=== PATIENT | male | born 1975 | race Caucasian/White ===

== ENCOUNTER 2019-01-09 10:05 | Observation (INO) ==
[2019-01-09] MEDS ORDERED: 0.9 % Sodium Chloride 1,000 ML IVC ONE (10:17)
--- NOTE | 2019-01-09 10:45 | Emergency Department Note ---
Disposition Clinical Impression: Atrial fibrillation with rapid ventricular response Disposition: Admitted As Inpatient Condition: Fair Time of Disposition: 12:36 General Adult HPI - General Stated complaint: A-Fib,light headed,weakness Time Seen by Provider: 01/09/19 10:13 Source: patient, family Limitations: no limitations Nursing Notes Reviewed: Yes Vital Signs Reviewed: Yes - History of Present Illness HPI Narrative: 43-year-old male with a past medical history of hypertension and reflux and several episodes of atrial fibrillation that were chemically and electrically converted presents with the chief complaint of palpitations. He states he woke up at 1 AM with palpitations, they have not changed since then, there worsened with standing and walking, he has associated shortness of breath and lightheadedness when standing and walking. He denies any chest pain, diaphoresis, nausea, vomiting. He does not drink or smoke or use drugs, family history significant for mother with atrial fibrillation. His previous episodes of atrial fibrillation were associated with gastrointestinal illnesses and were successfully converted without outpatient therapy required, he has never been anticoagulated. This episode of atrial fibrillation was not associated with any illness. He has had cardiovascular assessment in follow-up in the remote past but not recently. Pain Scale: 0 - Related Data Home Medications Medication Instructions Recorded Confirmed Esomeprazole Magnesium [Nexium 20 mg PO DAILY PRN 03/19/18 03/19/18 24Hr] Previous Rx's Medication Instructions Recorded Promethazine/Dextromethorphan 5 ml PO Q6HR PRN #120 ml 10/08/18 [Promethazine-Dm Syrup] cephALEXin [Keflex] 500 mg PO QID #40 capsule 10/08/18 methylPREDNISolone [Medrol] 4 mg PO TAPER #21 tablet 10/08/18 Allergies Allergy/AdvReac Type Severity Reaction Status Date / Time codeine AdvReac Vomiting Verified 01/09/19 10:10 All systems ED: reviewed and negative except as stated. Review of Systems: As Per HPI Past Medical History - Past Medical History Medical history: Reports: atrial fibrillation, GERD, hypertension Psychiatric history: Reports: no psych history - Social History Smoking Status: Never smoker Smokeless Tobacco Status: No Alcohol use: Reports: none Drug use: Reports: none Physical Exam - General Limitations: no limitations General appearance: alert, in no apparent distress, other (Male appearing stated age, lying comfortably in bed, conversing pleasantly) - Eye Eye exam: Present: normal appearance, PERRL - Chest Chest inspection: Present: symmetric chest wall rise - Respiratory Respiratory exam: Present: normal lung sounds bilaterally - Cardiovascular Cardiovascular exam: Present: tachycardia, irregular rhythm (Irregularly irregular rhythm), normal heart sounds - Abdominal Exam Abdominal exam: Present: soft, Non-Tender - Extremities Exam Extremities exam: Present: normal inspection, other (Mild 1+ pitting edema bilateral lower extremities) - Neurological Exam Neurological exam: Present: alert, oriented X3 - Skin Skin exam: Present: warm, dry Course Course Narrative: Patient presented in atrial fibrillation. He is otherwise hemodynamically stable and asymptomatic besides mild palpitations. We will evaluate with coagulation studies, troponin, BMP, TSH, EKG. We will initiate treatment with Cardizem bolus and Cardizem drip, normal saline bolus. - Reevaluation(s) Reevaluation #1: Cardizem bolus administered, Cardizem drip now started. Rate down from presentation, currently tachycardic in the 120s. Patient is still comfortable without chest pain or shortness of breath. Time: 11:28 Vital Signs Temperature 97.8 F 01/09/19 10:10 Pulse Rate 103 01/09/19 10:10 Respiratory Rate 15 01/09/19 10:10 Blood Pressure 145/84 01/09/19 10:10 O2 Sat by Pulse Oximetry 97 01/09/19 10:10 Temperature 97.8 F 01/09/19 10:10 Pulse Rate 95 01/09/19 11:18 Respiratory Rate 16 01/09/19 11:18 Blood Pressure 123/79 01/09/19 11:18 O2 Sat by Pulse Oximetry 100 01/09/19 11:18 Oxygen Delivery Oxygen Delivery Room Air Medical Decision Making - MDM Narrative Medical decision making narrative: CBC, BMP, coagulation studies negative for acute abnormality. Patient continues to remain in atrial fibrillation with rapid ventricular rate despite Cardizem drip. We will initiate heparin drip, spoke with admitting hospitalist Dr. Goodman who will accept the patient for admission to medicine service for atrial fibrillation with rapid ventricular rate for cardiac workup. He will be transferred to care medicine team in stable condition. - Lab Data Lab results reviewed: Yes I reviewed the patient's lab results. Result diagrams: 01/09/19 10:30 01/09/19 10:30 Lab Results 05/01/09/19 01/09/19 Range/Units 10:30 10:30 10:30 WBC 13.7 H (4.3-11.1) K/mcL RBC 5.30 (4.19-5.50) M/mcL Hgb 16.0 (12.9-16.9) g/dL Hct 45.9 (37.5-50.1) % MCV 86.6 (83.0-100.0) fL MCH 30.2 (28.0-33.3) pg MCHC 34.9 (31.6-35.5) g/dL RDW 13.0 (11.5-14.5) % Plt Count 321 (140-400) K/mcL MPV 10.3 (9.4-12.4) fL Immature Gran % 0.6 (0-4) % Seg Neutrophils % 59.6 % Lymphocytes % 24.1 % Monocytes % 10.2 % Eosinophils % 4.6 % Basophils % 0.9 % Neutrophils # 8.2 (1.6-8.9) K/mcL Lymphocytes # 3.3 (0.6-4.6) K/mcL Monocytes # 1.4 H (0.0-1.3) K/mcL Eosinophils # 0.6 (0.0-0.6) K/mcL Basophils # 0.1 (0.0-0.2) K/mcL PT 11.1 (9.4-12.1) Seconds INR 1.0 APTT 31.5 (26.0-36.0) Seconds Sodium 137 (136-145) mEq/L Potassium 3.8 (3.5-5.1) mEq/L Chloride 105 (98-107) mEq/L Carbon Dioxide 24 (23-29) mEq/L BUN 13 (6-20) mg/dL Creatinine 0.75 (0.70-1.30) mg/dL Est GFR ( Amer) > 60 (> 60) Est GFR (Non-Af Amer) > 60 (> 60) BUN/Creatinine Ratio 17 (6-26) Glucose 118 H (70-105) mg/dL Calculated Osmolality 285 (280-300) Calcium 8.8 (8.6-10.3) mg/dL Troponin I < 0.03 (< 0.04) ng/mL TSH 1.935 (0.340-5.600) mcIU/mL - EKG Data EKG #1 EKG attestation: Yes I reviewed and interpreted this EKG. EKG results narrative: EKG performed 01/09/19 for palpitations. Reviewed myself and the attending. Atrial fibrillation, rate 162, QTC 468. No ST elevations or depressions, T-wave inversions changes, no signs of acute ischemia. No delta waves noted. No comparison available. Attestation Statement - Attestation Attestation: I, Haroon Huber, examined this patient and my medical decision-making was reviewed with the [employer] MACHINE REPAIRER/PA/Advanced Practice Nurse/Resident Physician. I agree with the documented findings, disposition and treatment plan as described except to the extent set forth below. 43-year-old male presents emergency Department with concerns of acute onset palpitations. Patient states symptoms started acutely at 1 AM and woke him from sleep. Patient has a history of atrial fibrillation with RVR which generally occurred with viral disease or nausea, vomiting, diarrhea. Patient denied recent fevers, nausea, vomiting, diarrhea or other associated symptoms. He denies illicit drug use or large amounts caffeine or other substance abuse. Patient does not take anticoagulation at this time. Rhythm during my initial evaluation is regularly irregular and tachycardic. EKG confirmed atrial fibrillation with rapid ventricular rate. Patient started on Cardizem and admitted to the hospitalist for further care and evaluation.
[2019-01-09 10:50] LABS: Basophils # 0.1 K/mcL (0.0-0.2); Basophils % 0.9 %; Eosinophils # 0.6 K/mcL (0.0-0.6); Eosinophils % 4.6 %; Hematocrit 45.9 % (37.5-50.1); Immature Granulocytes % 0.6 % (0-4); Lymphocytes # 3.3 K/mcL (0.6-4.6); Lymphocytes % 24.1 %; Mean Corpuscular HGB Conc 34.9 g/dL (31.6-35.5); Mean Corpuscular Hemoglobin 30.2 pg (28.0-33.3); Mean Corpuscular Volume 86.6 fL (83.0-100.0); Mean Platelet Volume 10.3 fL (9.4-12.4); Monocytes # 1.4 K/mcL (0.0-1.3); Monocytes % 10.2 %; Neutrophils # 8.2 K/mcL (1.6-8.9); Platelet Count 321 K/mcL (140-400); Segmented Neutrophils % 59.6 %
[2019-01-09 10:57] LABS: Prothrombin Time 11.1 Seconds (9.4-12.1)
[2019-01-09 11:00] LABS: Activated Partial Thrombo Time 31.5 Seconds (26.0-36.0)
[2019-01-09 11:06] LABS: BUN/Creatinine Ratio 17 (6-26); Blood Urea Nitrogen 13 mg/dL (6-20); Calcium 8.8 mg/dL (8.6-10.3); Carbon Dioxide 24 mEq/L (23-29); Chloride 105 mEq/L (98-107); Glucose 118 mg/dL (70-105); Osmolality,Calculated 285 (280-300); Potassium 3.8 mEq/L (3.5-5.1); Sodium 137 mEq/L (136-145); Troponin I < 0.03 ng/mL (< 0.04); eGFR For Non-African Americans > 60 (> 60)
[2019-01-09 11:20] LABS: Thyroid Stimulating Hormone 1.935 mcIU/mL (0.340-5.600)
[2019-01-09] MEDS ORDERED: *HR* Heparin 5,000 UNIT/ML VIAL IVP ONE (12:06)
[2019-01-09] MEDS ORDERED: *HR* Heparin 5,000 UNIT/ML VIAL IVP PRN ×2 (12:06)
[2019-01-09] MEDS: Heparin 25,000 UNIT/250 ML D5W 25,000 UNIT/250 ML IV.SOLN IVC SCH (13:36)
[2019-01-09] MEDS ORDERED: Naloxone 0.4 MG/ML INJ IVP PRN (14:30)
[2019-01-09] MEDS ORDERED: Acetaminophen 325 MG TABLET PO PRN (14:30)
[2019-01-09] MEDS ORDERED: Ondansetron 4 MG/2 ML VIAL IVP PRN (14:30)
[2019-01-09] MEDS ORDERED: 0.9 % Sodium Chloride 1,000 ML IVC SCH (15:00)
--- NOTE | 2019-01-09 15:03 | Internal Med History&Physical ---
Date of Encounter: 01/09/19 Time of Encounter: 15:00 Internal Medicine - H&P: HPI Chief complaint: Palpitations Admitted From: Emergency Dept Plans for Post Hospital Care: Home History of present illness: Mr. Kraus is a 43 year old male with known past medical history of GERD, HTN, paroxysmal a fib diagnosed when he was a teenager since then he had only a couple of episodes so far, currently not on any rate controlled medication / anti coag meds who presented to ER c/o this morning he woke up with palpitations and tachycardia concerning for possible a fib. In the ER he happened to be in Afib with RVR HR in 140's now on the monitor. He denied any active chest pain. He denied any shortness of breath/nausea/vomiting. He does have sleep apnea based on his symptoms, not on CPAP. Pt stated lately he has been going through lot of stress. Also he felt little dehydrated y/d. Also few days ago his BP was in 180's. His mother have Afib. Past Med Surg Social Fam HX - Past Medical History Medical history: atrial fibrillation, GERD, hypertension Additional medical history: right ACL tear. Acute medial meniscus tear of right knee. wheumatoid arthritis. Erectile Dysfunction Psychiatric history: no psych history - Past Surgical History Additional surgical history: right shoulder arthroscopy,subacromial decompression,rotator cuf repair,right ACL reconstruction - Social History Smoking Status: Never smoker Smokeless Tobacco Status: No Alcohol use: none Drug use: none - Family History Mother Hx Family Cardiac Disorders: Yes (A fib) Internal Medicine - H&P: Meds Esomeprazole Magnesium [Nexium 24Hr] 20 mg PO DAILY PRN 03/19/18 [History] Promethazine/Dextromethorphan [Promethazine-Dm Syrup] 5 ml PO Q6HR PRN #120 ml 10/08/18 [Rx] cephALEXin [Keflex] 500 mg PO QID #40 capsule 10/08/18 [Rx] methylPREDNISolone [Medrol] 4 mg PO TAPER #21 tablet 10/08/18 [Rx] Allergy/AdvReac Type Severity Reaction Status Date / Time codeine AdvReac Vomiting Verified 01/09/19 10:10 All Systems PM: A 10-system review of systems was performed and is negative for pertinent findings except as documented above in the HPI. Review of systems: All the systems are reviewed everything is benign except the systems and symptoms I mentioned in the history of present illness - Constitutional Vitals: Temp Pulse Resp BP Pulse Ox 97.8 F 115 16 130/70 100 01/09/19 10:10 01/09/19 13:04 01/09/19 13:04 01/09/19 13:04 01/09/19 13:04 General appearance: Present: A&O X 3, no acute distress, answers questions appropriately Exam: a - Head Head exam: Present: atraumatic, normal inspection - Neck Neck exam general surgery: Present: full ROM, supple. Absent: tenderness - Respiratory Respiratory exam: Present: decreased breath sounds. Absent: rales, respiratory distress, rhonchi, wheezes - Cardiovascular Cardiovascular exam: Present: irregular rhythm, +S1, +S2, tachycardia. Absent: systolic murmur - GI/Abdominal GI/Abdominal exam: Present: normal bowel sounds, soft. Absent: rebound, rigid, tenderness - Extremities Exam Extremities exam: Present: full ROM. Absent: calf tenderness, cyanotic, joint swelling, pedal edema - Back Exam Back exam: Absent: CVA tenderness (L), CVA tenderness (R) - Neurological Exam Neurological exam: Present: alert, oriented X3 - Psychiatric Psychiatric exam: Present: normal affect, normal mood - Skin Skin exam: Absent: rash Internal Med - H&P Results - Labs CBC & Chem 7: 01/09/19 10:30 01/09/19 10:30 Labs: Short CBC 01/09/19 Range/Units 10:30 WBC 13.7 H (4.3-11.1) K/mcL Hgb 16.0 (12.9-16.9) g/dL Hct 45.9 (37.5-50.1) % Plt Count 321 (140-400) K/mcL Neutrophils # 8.2 (1.6-8.9) K/mcL BMP 01/09/19 10:30 Sodium 137 Potassium 3.8 Chloride 105 Carbon Dioxide 24 BUN 13 Creatinine 0.75 Glucose 118 H Calcium 8.8 Cardiac Enzymes 01/09/19 Range/Units 10:30 Troponin I < 0.03 (< 0.04) ng/mL - Impressions ITS Impressions Chest X-Ray 01/09/19 10:17 IMPRESSION: No radiographic evidence of acute cardiopulmonary process. D/ / Kristofer Aguirre MD / Kristofer Aguirre MD Interpreting Provider: Kristofer Aguirre MD - Assessment and Plan (1) Atrial fibrillation with rapid ventricular response Current Visit: Yes Status: Acute Assessment and plan: Place the pt into tele for observation He used to have Paroxysmal Afib but now he is in A fib with RVR - mostly triggered by stress / dehydration and possible DEONDRE However need to r/o ACS check serial trop so far negative troponin and normal TSH Reviewed EKG showed - Afib with VR @ 162 He was given Cardizem 15mg loading dose and started on gtt cont Cardizem gtt and titrate as needed His CHADSVASC -1 with HTN, he will be ok with ASA for anti coag however I don't have previous Echo to conform whether he has heart failure are not, which can put his CHADSVASC score to 2 Cont the heparin gtt initiated in the ER 2D Echo ordered cont close monitoring start him on IV hydration (2) HTN (hypertension) Current Visit: Yes Status: Acute Assessment and plan: Patient mentioned he had a high blood pressure few days ago however his blood pressure seems to be well controlled now without any medications Qualifiers: Hypertension type: essential hypertension Qualified Code(s): I10 - Essential (primary) hypertension (3) DEONDRE (obstructive sleep apnea) Current Visit: Yes Status: Acute Assessment and plan: He might have DEONDRE needed out patient sleep studies explained this to the patient (4) Morbid obesity with BMI of 40.0-44.9, adult Current Visit: Yes Status: Acute Assessment and plan: Counseled to lose weight - Time Spent With Patient Total time spent is greater than 50% in coordination of care (as documented) at patient's floor/unit and/or counseling patient:
[2019-01-09] MEDS: Aspirin Enteric Coated 81 MG Tablet PO SCH (19:03)
[2019-01-09] MEDS ORDERED: Perflutren Lipid Microsphere 1.3 ML in 0.9 % Sodium Chloride 8.7 ML IVP ONE (21:03)
[2019-01-10 04:25] LABS: Basophils # 0.2 K/mcL (0.0-0.2); Basophils % 1.2 %; Eosinophils # 0.6 K/mcL (0.0-0.6); Eosinophils % 4.8 %; Hematocrit 42.6 % (37.5-50.1); Hemoglobin 14.6 g/dL (12.9-16.9); Immature Granulocytes % 0.3 % (0-4); Lymphocytes # 4.7 K/mcL (0.6-4.6); Lymphocytes % 38.2 %; Mean Corpuscular HGB Conc 34.3 g/dL (31.6-35.5); Mean Corpuscular Hemoglobin 30.1 pg (28.0-33.3); Mean Corpuscular Volume 87.8 fL (83.0-100.0); Mean Platelet Volume 10.6 fL (9.4-12.4); Monocytes % 8.5 %; Neutrophils # 5.8 K/mcL (1.6-8.9); Platelet Count 292 K/mcL (140-400); Red Blood Count 4.85 M/mcL (4.19-5.50); Red Cell Distribution Width 13.2 % (11.5-14.5)
[2019-01-10 04:49] LABS: BUN/Creatinine Ratio 14 (6-26); Blood Urea Nitrogen 10 mg/dL (6-20); Calcium 8.1 mg/dL (8.6-10.3); Carbon Dioxide 24 mEq/L (23-29); Chloride 109 mEq/L (98-107); Glucose 115 mg/dL (70-105); Osmolality,Calculated 290 (280-300); Potassium 3.4 mEq/L (3.5-5.1); Sodium 140 mEq/L (136-145); eGFR For Non-African Americans > 60 (> 60)
--- NOTE | 2019-01-10 04:59 | Event Note ---
Date of Encounter: 01/09/19 Time of Encounter: 23:46 Alerted by patient's nurse ANTIONETTE Moss that patient had been on Cardizem gtt. at 15 mg per hour for the past 3-1/2 hours. Blood pressure is holding steady in 120s with heart rate bouncing 70s to 110s. Patient still in Afib. Alerted by nurse at 02:48 that patient's heart rate was predominantly 70s to 80s, however would dropped to 50s and 60s. Cardizem gtt. titrated to 12.5 mg per hour. Consider adding Cardiology consult today due to patient's uncontrolled atrial fi brillation. Nurse instructed to continue monitoring patient very closely and alert me immediately of any adverse changes.
[2019-01-10] MEDS: Heparin 25,000 UNIT/250 ML D5W 25,000 UNIT/250 ML IV.SOLN IVC SCH ×2 (05:34→18:15)
[2019-01-10] MEDS ORDERED: 0.9 % Sodium Chloride 1,000 ML ONE (06:31)
[2019-01-10] MEDS: Aspirin Enteric Coated 81 MG Tablet PO SCH (07:24)
[2019-01-10] MEDS: Diltiazem CD (24hr) 180 MG CAPSULE PO SCH (10:58)
--- NOTE | 2019-01-10 18:09 | Internal Med Progress Note ---
<[facility] - Last Filed: 01/10/19 18:08> Hospitalist Progress Note - Encounter Date of Encounter: 01/10/19 Time of Encounter: 09:22 - Subjective Interval History: Patient was seen and examined at bedside. He states that he is feeling well today. This morning, patient converted to normal sinus rhythm. He has been transitioned to oral Cardizem. Patient is being monitored on continuous telemetry. If his condition remains stable, he will likely be discharged tomorrow. He will likely need follow-up in the outpatient setting with both cardiology and pulmonology for possible obstructive sleep apnea. He currently denies having any chest pain, palpitations, diaphoresis, fever, chills, nausea, vomiting, headache, or visual disturbances. No complaints at this time. - Exam Vitals: Temp Pulse Resp BP Pulse Ox 97.9 F 73 16 125/72 97 01/10/19 16:20 01/10/19 16:20 01/10/19 16:20 01/10/19 16:20 01/10/19 16:20 Exam: General: A&O X3, obese, no acute distress Head: atraumatic, normocephalic Eye: PERRL, EOMI, conjuntiva pink, sclera anicteric Neck: Supple, trachea midline; No lymphadenopathy Respiratory: CTAB. No accessory muscle use, wheezes, rales, or rhonchi Cardiovascular: Irregularly irregular, +S1, +S2; no murmurs, rubs, gallops Abdomen: Soft, nontender Extremities: warm, radial pulses palpable and symmetrical Psychiatric: Normal affect, normal mood Skin: Dry, intact - Assessment and Plan (1) Atrial fibrillation with rapid ventricular response Current Visit: Yes Status: Acute Assessment and Plan: ASSESSMENT - Initially presented with palpitations; found to be in atrial fibrillation with rapid ventricular response - Reports that he has had paroxysmal A. fib, mostly triggered by stress and possibly by obstructive sleep apnea - Patient had a sleep study many years ago but has not been evaluated since - He was admitted and placed into telemetry for observation - After being on Cardizem, patient converted to normal sinus rhythm this morning PLAN: - Currently on heparin drip - Cardizem 180 mg by mouth daily - If he remains, we will discharge patient on PO meds for rate control - He will require follow-up with cardiology in the outpatient setting, as well as evaluation for obstructive sleep apnea (2) DEONDRE (obstructive sleep apnea) Current Visit: Yes Status: Acute Assessment and Plan: - Patient has not been formally diagnosed, but states that he has been snoring excessively - Was evaluated several years ago but was never formally diagnosed - She will need follow-up in the outpatient setting for sleep study (3) HTN (hypertension) Current Visit: Yes Status: Acute Assessment and Plan: - Currently well-controlled (4) Morbid obesity with BMI of 40.0-44.9, adult Current Visit: Yes Status: Acute Assessment and Plan: - Counseled to lose weight - Time Spent with Patient Total time spent is greater than 50% in coordination of care (as documented) at patient's floor/unit and/or counseling patient: Internal Medicine: Result - Labs CBC & Chem 7: 01/10/19 04:00 01/10/19 04:00 Labs: Short CBC 01/10/19 Range/Units 04:00 WBC 12.3 H (4.3-11.1) K/mcL Hgb 14.6 (12.9-16.9) g/dL Hct 42.6 (37.5-50.1) % Plt Count 292 (140-400) K/mcL Neutrophils # 5.8 (1.6-8.9) K/mcL BMP 01/10/19 04:00 Sodium 140 Potassium 3.4 L Chloride 109 H Carbon Dioxide 24 BUN 10 Creatinine 0.71 Glucose 115 H Calcium 8.1 L Cardiac Enzymes 01/09/19 01/09/19 Range/Units 17:36 23:00 Troponin I < 0.03 < 0.03 (< 0.04) ng/mL - ABG Interpretation ABG results: PT/INR, D-dimer PT 11.1 Seconds (9.4-12.1) 01/09/19 10:30 - Impressions Impressions Echocardiogram 01/09/19 14:59 Impressions: LVEF 55%. Mild concentric left ventricular hypertrophy. Indeterminate diastolic function. Normal right ventricular structure and function. No evidence of pulmonary hypertension. No significant valvular dysfunction Left Ventricular Wall Motion: Rest Echo Findings All wall segments showed normal motion. Findings: Study Quality * Technically sub-optimal due to clinical status. ECG Findings * Atrial fibrillation. Left Ventricle * LVEF 55%. * Mild concentric left ventricular hypertrophy. * Indeterminate diastolic function. * Normal LV chamber size. Right Ventricle * Normal right ventricular structure and function. Left Atrium * Normal left atrial size. Right Atrium * Normal right atrial size. Aortic Valve * Aortic valve not well visualized. * No aortic regurgitation. * No aortic stenosis. Mitral Valve * Normal mitral valve structure. * No mitral regurgitation. * No mitral stenosis. Tricuspid Valve * Trace tricuspid regurgitation. * No tricuspid stenosis. * Normal tricuspid valve structure. * No evidence of pulmonary hypertension. Pulmonic Valve * Trace pulmonic regurgitation. Aorta * Normally sized aortic root. Pericardium * The pericardium appears normal. IVC * Normal IVC dimensions and inspiratory collapse. Pulmonary Artery * Pulmonary artery not well visualized. Consult Discharge Plan - Plan Referrals: Marcelle Lacey CNP [Primary Care Provider] - <[facility]ed[facility] Ross - Last Filed: 01/10/19 21:07> Hospitalist Progress Note - Encounter Date of Encounter: 01/10/19 - Exam Vitals: Temp Pulse Resp BP Pulse Ox 98.8 F 76 15 131/75 96 01/10/19 20:26 01/10/19 20:26 01/10/19 20:26 01/10/19 20:26 01/10/19 20:26 - Assessment and Plan (1) Atrial fibrillation with rapid ventricular response Current Visit: Yes Status: Acute (2) HTN (hypertension) Current Visit: Yes Status: Acute (3) DEONDRE (obstructive sleep apnea) Current Visit: Yes Status: Acute (4) Morbid obesity with BMI of 40.0-44.9, adult Current Visit: Yes Status: Acute - Time Spent with Patient Total time spent is greater than 50% in coordination of care (as documented) at patient's floor/unit and/or counseling patient: Internal Medicine: Result - Labs CBC & Chem 7: 01/10/19 04:00 01/10/19 04:00 Labs: Short CBC 01/10/19 Range/Units 04:00 WBC 12.3 H (4.3-11.1) K/mcL Hgb 14.6 (12.9-16.9) g/dL Hct 42.6 (37.5-50.1) % Plt Count 292 (140-400) K/mcL Neutrophils # 5.8 (1.6-8.9) K/mcL BMP 01/10/19 04:00 Sodium 140 Potassium 3.4 L Chloride 109 H Carbon Dioxide 24 BUN 10 Creatinine 0.71 Glucose 115 H Calcium 8.1 L Cardiac Enzymes 01/09/19 Range/Units 23:00 Troponin I < 0.03 (< 0.04) ng/mL - ABG Interpretation ABG results: PT/INR, D-dimer PT 11.1 Seconds (9.4-12.1) 01/09/19 10:30 - Impressions Impressions Echocardiogram 01/09/19 14:59 Impressions: LVEF 55%. Mild concentric left ventricular hypertrophy. Indeterminate diastolic function. Normal right ventricular structure and function. No evidence of pulmonary hypertension. No significant valvular dysfunction Left Ventricular Wall Motion: Rest Echo Findings All wall segments showed normal motion. Findings: Study Quality * Technically sub-optimal due to clinical status. ECG Findings * Atrial fibrillation. Left Ventricle * LVEF 55%. * Mild concentric left ventricular hypertrophy. * Indeterminate diastolic function. * Normal LV chamber size. Right Ventricle * Normal right ventricular structure and function. Left Atrium * Normal left atrial size. Right Atrium * Normal right atrial size. Aortic Valve * Aortic valve not well visualized. * No aortic regurgitation. * No aortic stenosis. Mitral Valve * Normal mitral valve structure. * No mitral regurgitation. * No mitral stenosis. Tricuspid Valve * Trace tricuspid regurgitation. * No tricuspid stenosis. * Normal tricuspid valve structure. * No evidence of pulmonary hypertension. Pulmonic Valve * Trace pulmonic regurgitation. Aorta * Normally sized aortic root. Pericardium * The pericardium appears normal. IVC * Normal IVC dimensions and inspiratory collapse. Pulmonary Artery * Pulmonary artery not well visualized. - Attending Attestation I examined this patient and my medical decision-making was reviewed with the Resident Physician. I agree with the documented findings, disposition and treatment plan as described except to the extent set forth below. Patient in no acute distress. Currently on Cardizem drip and converted to normal sinus rhythm and HR ranging from 80s-110s with normal blood pressure. On my exam, HR was RRR and breath sounds clear, in no acute distress. Will start PO Cardizem and titrate patient off Cardizem drip. He has known history of atrial fibrillation and if he tolerates PO Cardizem, follow-up can be done as outpatient. Suspect that DEONDRE can be contributing, discussed with patient about sleep study after discharge. <[facility] - Last Filed: 01/10/19 18:08> (3) HTN (hypertension) Qualifiers: Hypertension type: essential hypertension Qualified Code(s): I10 - Essential (primary) hypertension <Deedee Ross - Last Filed: 01/10/19 21:07> (2) HTN (hypertension) Qualifiers: Hypertension type: essential hypertension Qualified Code(s): I10 - Essential (primary) hypertension
--- NOTE | 2019-01-10 19:21 | Electrocardiograph Report ---
[facility] Test Date: 2019-01-09 Pat Name: Florentin Kraus Department: EXAM2 Room: 3A37 Gender: M Photographic Process Attendant: : 1975 Requested By: Haroon Huber Order Number: [id number] Reading MD: Florentino Dugan Measurements Intervals Lamar Rate: 162 P: ND: QRS: 62 QRSD: 100 T: -23 QT: 285 QTc: 468 Interpretive Statements Atrial fibrillation with rapid ventricular response Ventricular premature complex Low voltage, precordial leads Borderline T abnormalities, inferior leads Baseline wander in lead(s) V6 Electronically Signed On 01-10-2019 19:20:17 EDT by Florentino Dugan
[2019-01-11] MEDS: Heparin 25,000 UNIT/250 ML D5W 25,000 UNIT/250 ML IV.SOLN IVC SCH (01:54)
[2019-01-11 05:39] LABS: Basophils # 0.1 K/mcL (0.0-0.2); Eosinophils # 0.5 K/mcL (0.0-0.6); Hematocrit 42.4 % (37.5-50.1); Hemoglobin 14.5 g/dL (12.9-16.9); Immature Granulocytes % 0.6 % (0-4); Lymphocytes # 3.4 K/mcL (0.6-4.6); Lymphocytes % 32.9 %; Mean Corpuscular HGB Conc 34.2 g/dL (31.6-35.5); Mean Corpuscular Volume 87.6 fL (83.0-100.0); Mean Platelet Volume 10.2 fL (9.4-12.4); Monocytes # 0.9 K/mcL (0.0-1.3); Neutrophils # 5.4 K/mcL (1.6-8.9); Platelet Count 270 K/mcL (140-400); Red Blood Count 4.84 M/mcL (4.19-5.50); Red Cell Distribution Width 13.1 % (11.5-14.5); Segmented Neutrophils % 51.5 %
[2019-01-11 06:02] LABS: BUN/Creatinine Ratio 13 (6-26); Blood Urea Nitrogen 10 mg/dL (6-20); Calcium 8.4 mg/dL (8.6-10.3); Carbon Dioxide 25 mEq/L (23-29); Chloride 107 mEq/L (98-107); Glucose 102 mg/dL (70-105); Osmolality,Calculated 285 (280-300); Potassium 3.9 mEq/L (3.5-5.1); Sodium 138 mEq/L (136-145); eGFR For Non-African Americans > 60 (> 60)
[2019-01-11] MEDS: Diltiazem CD (24hr) 180 MG CAPSULE PO SCH (07:24)
[2019-01-11] MEDS: Aspirin Enteric Coated 81 MG Tablet PO SCH (07:24)
[2019-01-11 11:26] VITALS: BP 119/66
--- NOTE | 2019-01-11 13:07 | Discharge Summary ---
<[facility] - Last Filed: 01/11/19 13:03> - NOTES TO OUTPATIENT PROVIDER Notes to Outpatient Provider: Follow-up with cardiology and primary care within the next week. Also follow up with pulmonology in the outpatient setting for sleep study for obstructive sleep apnea. Date of Encounter: 01/11/19 Time of Encounter: 13:03 - Discharge Diagnosis (1) Atrial fibrillation with rapid ventricular response Priority: Primary Status: Acute (2) DEONDRE (obstructive sleep apnea) Priority: Secondary Status: Acute (3) HTN (hypertension) Priority: Secondary Status: Acute Qualifiers: Hypertension type: essential hypertension Qualified Code(s): I10 - Essential (primary) hypertension (4) Morbid obesity with BMI of 40.0-44.9, adult Priority: Secondary Status: Acute Hospital course: Mr. Kraus is a 43 year old male with a PMH of GERD, HTN, and paroxysmal atrial fibrillation who presented to [facility] ED on 01/09 with a chief complaint of palpitations and tachycardia. He has reported several episodes of this in the past. He states that these episodes usually come on with stress. Upon arrival to the emergency department, patients vital signs were as follows: Temperature 97.8 pulse 103, respiratory rate 15, blood pressure 145/84, and O2 saturation was 97%. Laboratory analysis demonstrated an elevated white count 13.7. CXR demonstrated no acute cardiopulmonary process. In the emergency department, he was found to have A. fib with RVR with a heart rate in the 140s. At the time, he denied having active chest pain. He was started on a Cardizem drip, and was placed on continuous telemetry. Was also placed on a heparin drip. Echocardiogram was obtained, which demonstrated an ejection fraction of 55%, mild concentric left ventricular hypertrophy, indeterminant diastolic function, normal right ventricular structure and function, no evidence of pulmonary hypertension, and no significant valvular dysfunction. On the morning of 01/10, patient converted back to sinus rhythm after being placed on a Cardizem drip. Cardizem drip was discontinued, and he was switched to Cardizem 180 mg by mouth daily. He will be started on aspirin for anticoagulation. His [id number] score is 1 based on his history of hypertension. He will be discharged on oral Cardizem and aspirin daily. Patient seen and examined on date of discharge; he states that he is feeling well today. Denies having any chest pain, palpitations, diaphoresis, headache, visual disturbances, fever, chills, nausea, or vomiting. He is instructed to follow-up with cardiology in the outpatient setting within the next week, as well as primary care provider. He is also instructed to follow-up with pulmonology in the outpatient setting for possible undiagnosed obstructive sleep apnea. - Time Spent with Patient Total time spent providing and/or coordinating discharge services: - Discharge Medications Prescriptions: New Aspirin Enteric Coated [Aspirin EC] 81 mg PO DAILY #30 tablet.dr Graytiazesingh CD (24hr) [Cardizem CD] 180 mg PO DAILY #30 cap.er.24h Continued Esomeprazole Magnesium [Nexium] 20 mg PO DAILY Discontinued Olmesartan Medoxomil 20 mg PO DAILY Home Medications: Esomeprazole Magnesium [Nexium] 20 mg PO DAILY 01/09/19 [History] Aspirin Enteric Coated [Aspirin EC] 81 mg PO DAILY #30 tablet. 01/11/19 [Rx] Diltiazem CD (24hr) [Cardizem CD] 180 mg PO DAILY #30 cap.er.24h 01/11/19 [Rx] Allergies/Adverse Reactions: Allergy/AdvReac Type Severity Reaction Status Date / Time codeine AdvReac NAUSEA/HEADACHE/COLD Verified 01/09/19 22:07 SWEATS Date of admission: 01/09/19 13:31 Primary care physician: Marcelle Lacey CNP Discharging clinician: [facility] Anticipated date of discharge: 01/11/19 - Constitutional Vitals: Temp Pulse Resp BP Pulse Ox 98.0 F 75 15 119/66 96 01/11/19 11:23 01/11/19 11:23 01/11/19 11:23 01/11/19 11:23 01/11/19 11:23 General appearance: Present: A&O X 3, no acute distress, answers questions appropriately Exam: General: A&O X3, obese, no acute distress Head: atraumatic, normocephalic Eye: PERRL, EOMI, conjuntiva pink, sclera anicteric Neck: Supple, trachea midline; No lymphadenopathy Respiratory: CTAB. No accessory muscle use, wheezes, rales, or rhonchi Cardiovascular: Irregularly irregular, +S1, +S2; no murmurs, rubs, gallops Abdomen: Soft, nontender Extremities: warm, radial pulses palpable and symmetrical Psychiatric: Normal affect, normal mood Skin: Dry, intact - Patient Status Disposition: Home, Self-Care Condition: Good Overall status at discharge: patient is back to baseline - Discharge Instructions Follow Up With: Marcelle Lacey CNP [Primary Care Provider] - Forms: ED Satisfaction Letter - Diet and Activity Activity: increase activity as tolerated Diet: advance to your usual diet <Deedee Ross - Last Filed: 01/11/19 16:03> Date of Encounter: 01/11/19 - Discharge Diagnosis (1) Atrial fibrillation with rapid ventricular response Status: Acute (2) HTN (hypertension) Status: Acute Qualifiers: Hypertension type: essential hypertension Qualified Code(s): I10 - Essential (primary) hypertension (3) DEONDRE (obstructive sleep apnea) Status: Acute (4) Morbid obesity with BMI of 40.0-44.9, adult Status: Acute Hospital course: Mr. Kraus is a 43 year old male - Time Spent with Patient Total time spent providing and/or coordinating discharge services: Date of admission: 01/09/19 13:31 Primary care physician: Marcelle Lacey CNP - Constitutional Vitals: Temp Pulse Resp BP Pulse Ox 98.0 F 75 15 119/66 96 01/11/19 11:23 01/11/19 11:23 01/11/19 11:23 01/11/19 11:23 01/11/19 11:23 - Attending Attestation I examined this patient and my medical decision-making was reviewed with the Resident Physician. I agree with the documented findings, disposition and treatment plan as described except to the extent set forth below.
== END 2019-01-11 13:40 | disposition home or self-care (01) ==
LOC: EMEROOARM 10:05 → 3ANU 10:05 → SUATTDRO 13:31 → 3ANU 15:16
PROVIDERS: ADMIT Internal Medicine Nephrology; ATTEND Student in an Organized Health Care Education/Training Program